=== PATIENT | female | born 1970 | race Two or more races ===

== ENCOUNTER 2019-06-24 17:11 | Emergency (ER) | payer MEDICAID ==
[~2019-06-24] VITALS: Ht 154.9 cm; Wt 79.8 kg
--- NOTE | 2019-06-24 17:12 | NUR ---
ED Nurse Note: brought by ambulance noahd ra 829 from [facility] c/o abdominal pain x3 days. patient reports nausea and denies vomitting and diarrhea. patient currently crying hysterically. patient reports etoh and onset of symptoms started after drinking. last drink this afternoon. ao4. vss. changed into gown; attached to monitor; safety measures met.
[2019-06-24] MEDS ORDERED: Morphine Sulfate 4mg/ml Inj (IV USE ONLY) IVP ONE (17:15)
[2019-06-24 17:19] VITALS: BP 124/75
--- NOTE | 2019-06-24 17:20 | Emergency Room Report ---
History of Present Illness General Chief Complaint: Abdominal Pain Source: Patient Present Illness HPI 48-year-old female history of stomach cancer history of alcohol gastritis drinks a gallon of vodka per day per patient states that she has had abdominal pain for the past 3 days after drinking vodka, no alleviating factors severity is moderate, intermittent, patient endorses nausea vomiting, diarrhea, patient presents for evaluation no fevers no chills no chest pain or shortness of breath patient is tearful during this interview She also notes that there is some blood in her diarrhea and vomit Allergies: Uncoded Allergies: BICODINE (Allergy, Unknown, 06/24/19) CODEIN (Allergy, Unknown, 06/24/19) COVID-19 Screening Contact w/high risk pt: No Recent Travel to affected area: No Experienced COVID-19 symptoms?: No Patient History Past Medical History: see triage record Reviewed Nursing Documentation: PMH: Agreed; PSxH: Agreed Nursing Documentation-PMH Past Medical History: No History, Except For Hx Cardiac Problems: No - stomach cancer History Of Psychiatric Problem: No - bipolar Review of Systems All Other Systems: negative except mentioned in HPI Physical Exam Vital Signs Date Time Temp Pulse Resp B/P (MAP) Pulse Ox O2 Delivery O2 Flow Rate FiO2 06/24/19 17:05 98.2 71 18 124/75 (91) 98 Room Air Sp02 EP Interpretation: reviewed, normal General Appearance: well appearing, no apparent distress, alert Head: normocephalic, atraumatic Eyes: bilateral eye PERRL, bilateral eye EOMI ENT: uvula midline, moist mucus membranes Neck: supple, thyroid normal, supple/symm/no masses Respiratory: lungs clear, no respiratory distress, no retraction, no accessory muscle use Cardiovascular #1: normal peripheral pulses, regular rate, rhythm, no edema, no gallop, no murmur Gastrointestinal: soft, no guarding, no rebound, tenderness - Generalized tenderness very mild Musculoskeletal: normal inspection Neurologic: alert, oriented x3 Psychiatric: anxious - Crying Skin: no rash, warm/dry Procedures Critical Care Time Critical Care Time Given the critical condition in which the patient arrived, the patient was immediately assessed by myself and the nurse, and cardiac monitoring initiated due to the potential for rapid decompensation of the patient's clinical condition. During the course of the patient's stay, I spent a considerable amount of time at the bedside performing serial re-evaluations of the patient's hemodynamic and clinical status because of the recognized potential threat to life or limb in this condition. I then had a chance to review not only all of the available current laboratory and radiographic studies obtained today, but I also reviewed old records available to me at the time. Additionally, any ancillary information available including splicer operator records were reviewed. Sequential vital signs were obtained. Blood transfused due to anemia, and abdominal pain possible gi bleed Critical Care time of 31 minutes was performed exclusive of billable procedures. Medical Decision Making Diagnostic Impression: Primary Impression: Anemia Qualified Codes: D64.9 - Anemia, unspecified Additional Impressions: Abdominal pain Qualified Codes: R10.84 - Generalized abdominal pain Alcohol abuse GI bleed Qualified Codes: K92.2 - Gastrointestinal hemorrhage, unspecified ER Course 48-year-old female presents with abdominal pain differential diagnosis includes gastritis, alcohol gastritis, GI bleed, generalized abdominal pain unspecified diverticulitis, appendicitis CT scan unremarkable however patient is anemic, will work-up patient's anemia will transfuse patient blood patient remains critical but stable will admit patient Patient will be transferred to [facility] Spoke with Dr. Kee 7:44pm Patient to be transferred to [facility] Laboratory Tests Test 06/24/19 17:20 06/24/19 17:30 White Blood Count 8.7 K/UL (4.8-10.8) Red Blood Count 4.47 M/UL (4.20-5.40) Hemoglobin 7.5 G/DL (12.0-16.0) L Hematocrit 26.6 % (37.0-47.0) L Mean Corpuscular Volume 59 FL (80-99) L Mean Corpuscular Hemoglobin 16.8 PG (27.0-31.0) L Mean Corpuscular Hemoglobin Concent 28.4 G/DL (32.0-36.0) L Red Cell Distribution Width 23.6 % (11.6-14.8) H Platelet Count 451 K/UL (150-450) H Mean Platelet Volume 7.2 FL (6.5-10.1) Neutrophils (%) (Auto) % (45.0-75.0) Lymphocytes (%) (Auto) % (20.0-45.0) Monocytes (%) (Auto) % (1.0-10.0) Eosinophils (%) (Auto) % (0.0-3.0) Basophils (%) (Auto) % (0.0-2.0) Differential Total Cells Counted 100 Neutrophils % (Manual) 45 % (45-75) Lymphocytes % (Manual) 47 % (20-45) H Monocytes % (Manual) 5 % (1-10) Eosinophils % (Manual) 2 % (0-3) Basophils % (Manual) 1 % (0-2) Band Neutrophils 0 % (0-8) Platelet Estimate Adequate Platelet Morphology Normal Polychromasia 2+ Hypochromasia 3+ Anisocytosis 3+ Microcytosis 2+ Sodium Level 141 MMOL/L (136-145) Potassium Level 3.8 MMOL/L (3.5-5.1) Chloride Level 106 MMOL/L (98-107) Carbon Dioxide Level 24 MMOL/L (21-32) Anion Gap 11 mmol/L (5-15) Blood Urea Nitrogen 11 mg/dL (7-18) Creatinine 0.6 MG/DL (0.55-1.30) Estimated Glomerular Filtration Rate > 60 mL/min (>60) Glucose Level 108 MG/DL (74-106) H Calcium Level 8.8 MG/DL (8.5-10.1) Total Bilirubin 0.4 MG/DL (0.2-1.0) Aspartate Amino Transferase (AST) 49 U/L (15-37) H Alanine Aminotransferase (ALT) 38 U/L (12-78) Alkaline Phosphatase 85 U/L (46-116) Total Protein 7.8 G/DL (6.4-8.2) Albumin 4.2 G/DL (3.4-5.0) Globulin 3.6 g/dL Albumin/Globulin Ratio 1.2 (1.0-2.7) Lipase 131 U/L (73-393) Human Chorionic Gonadotropin, Quant 1 mIU/mL (1-6) Urine Color Pale yellow Urine Appearance Slightly cloudy Urine pH 5 (4.5-8.0) Urine Specific [place] 1.010 (1.005-1.035) Urine Protein 2+ (NEGATIVE) H Urine Glucose (UA) Negative (NEGATIVE) Urine Ketones Negative (NEGATIVE) Urine Blood 5+ (NEGATIVE) H Urine Nitrite Negative (NEGATIVE) Urine Bilirubin Negative (NEGATIVE) Urine Urobilinogen Normal MG/DL (0.0-1.0) Urine Leukocyte Esterase Negative (NEGATIVE) Urine RBC 0-2 /HPF (0 - 2) Urine WBC 0-2 /HPF (0 - 2) Urine Squamous Epithelial Cells Few /LPF (NONE/OCC) Urine Bacteria Occasional /HPF (NONE) CT/MRI/US Diagnostic Results CT/MRI/US Diagnostic Results : Impression Preliminary Findings Only See Final Report For Complete Findings CT ABDOMEN & PELVIS With Contrast: No appendicitis, SBO, or diverticulitis. Moderate colonic stool. No hydronephrosis or ureteral calculus. Cholecystectomy. No radiopaque choledocholithiasis. Unremarkable pancreas. Radiologist: Slick Crook M.D. Study ready at 18:57 and initial results transmitted at 19:07 Last Vital Signs Date Time Temp Pulse Resp B/P (MAP) Pulse Ox O2 Delivery O2 Flow Rate FiO2 06/24/19 17:05 98.2 71 18 124/75 (91) 98 Room Air Disposition: SHORT-TERM HOSP Condition: Stable James Gann MD Jun 24, 2019 17:20
[2019-06-24] MEDS ORDERED: Omnipaque-300 100ml vial INJ PRN (17:30)
--- NOTE | 2019-06-24 17:30 | NUR ---
ED Nurse Note: iv access established. ja type & screen 15 min apart. blood and urine collected; sent down to lab.
[2019-06-24 17:41] LABS: HEMATOCRIT 26.6 % (37.0-47.0); HEMOGLOBIN 7.5 G/DL (12.0-16.0); MEAN CORPUSCULAR VOLUME 59 FL (80-99); PLATELET COUNT 451 K/UL (150-450); RED BLOOD COUNT 4.47 M/UL (4.20-5.40); RED CELL DISTRIBUTION WIDTH 23.6 % (11.6-14.8); WHITE BLOOD COUNT 8.7 K/UL (4.8-10.8)
[2019-06-24 17:51] LABS: APPEARANCE,URINE SLIGHTLY CLOUDY; BILIRUBIN, URINE NEGATIVE (NEGATIVE); COLOR,URINE PALE YELLOW; GLUCOSE, URINE (UA) NEGATIVE (NEGATIVE); KETONES,URINE NEGATIVE (NEGATIVE); LEUKOCYTE ESTERASE ,URINE NEGATIVE (NEGATIVE); NITRITE,URINE NEGATIVE (NEGATIVE); PH,URINE 5 (4.5-8.0); PROTEIN,URINE 2+ (NEGATIVE); UROBILINOGEN,URINE NORMAL MG/DL (0.0-1.0)
[2019-06-24 18:12] LABS: ANION GAP 11 mmol/L (5-15); BLOOD UREA NITROGEN 11 mg/dL (7-18); CALCIUM 8.8 MG/DL (8.5-10.1); CARBON DIOXIDE 24 MMOL/L (21-32); CHLORIDE 106 MMOL/L (98-107); CREATININE 0.6 MG/DL (0.55-1.30); POTASSIUM 3.8 MMOL/L (3.5-5.1); SODIUM 141 MMOL/L (136-145)
[2019-06-24 18:16] LABS: ALANINE AMINOTRANSFERASE 38 U/L (12-78); ALBUMIN 4.2 G/DL (3.4-5.0); ALBUMIN/GLOBULIN RATIO 1.2 (1.0-2.7); ALKALINE PHOSPHATASE 85 U/L (46-116); ASPARTATE AMINO TRANSFERASE 49 U/L (15-37); BILIRUBIN,TOTAL 0.4 MG/DL (0.2-1.0)
[2019-06-24 18:31] VITALS: BP 122/71
--- NOTE | 2019-06-24 18:32 | NUR ---
ED Nurse Note: patient down to ct via gurney with residential pest control technician. patient calm and comfortable. ao4. nad. vss. patient reports relief of pain from medication.
--- NOTE | 2019-06-24 19:08 | Diagnostic Imaging Report ---
Indication: Abdominal pain Technique: CT of the abdomen and pelvis utilizing automated exposure control with intravenous contrast. Venous scanning performed. Axial, sagittal and coronal reformats presented. CT dose: Total DLP 521.3 mGycm; CTDI vol 10.6 mGy Comparison: None Findings: Exam degraded by patient motion. Minimal dependent atelectatic changes noted in the lung bases. Partially imaged heart appears normal in size. No pericardial effusion. Partially imaged breast tissue appears grossly symmetric however incompletely evaluated. There is a tiny hiatal hernia. Patient is status post cholecystectomy. Minimal biliary ductal prominence likely related to postcholecystectomy state. No focal hepatic mass lesion noted however sensitivity in evaluation for such is limited on this single phase exam. Hepatic veins and portal veins appear patent. Spleen, adrenal glands and pancreas unremarkable. No peripancreatic inflammatory changes or fluid collections. Kidneys enhance symmetrically. No urinary tract stone or hydronephrosis is identified. The bladder is decompressed, precluding reliable evaluation. Fluid attenuation is noted within the uterine canal which may represent a physiologic finding in the premenopausal female. A 1.9 cm low-attenuation right adnexal lesion is noted, possibly cyst. There is no free intraperitoneal air or fluid. No evidence of bowel obstruction or definite inflammatory stranding within the mesentery. The appendix is not definitively visualized however there are no pericecal inflammatory changes to suggest acute appendicitis. Mild retained stool is noted within the colon. Abdominal aorta is normal in caliber. There is no pathologically enlarged lymphadenopathy. There is a small fat-containing supraumbilical ventral hernia. No acute osseous abnormality. IMPRESSION: Exam degraded by patient motion. Within these limitations: * Bladder is decompressed, precluding reliable evaluation. Consider further evaluation with urinalysis as clinically indicated. * Fluid attenuation noted within the uterus which may be a physiologic finding in the premenopausal female. If the patient is pre or perimenopausal recommend further evaluation with pelvic ultrasound. * 1.9 cm low-attenuation right adnexal structure, probably cyst. * Status post cholecystectomy. Minimal biliary ductal prominence likely related to post cholecystectomy state. * Small fat-containing supraumbilical ventral hernia. The CT scanner at [facility] is accredited by the [employer] and the scans are performed using protocols designed to limit radiation exposure to as low as reasonably achievable to attain images of sufficient resolution adequate for diagnostic evaluation.
--- NOTE | 2019-06-24 19:30 | NUR ---
ED Nurse Note: pretransfusion vitals stable. started transfusion. will continue to monitor.
[2019-06-24 19:45] VITALS: BP 113/62
--- NOTE | 2019-06-24 19:45 | NUR ---
ED Nurse Note: 15 minute vitals stable. no signs of transfusion reaction. will continue to monitor. patient ao4. nad. provided with pillow and warm blankets. will continue to monitor.
--- NOTE | 2019-06-24 20:58 | NUR ---
ED Nurse Note: report given to efra william of [facility]. patient to be admitted to [facility] under the care of avani loja
[2019-06-24 20:59] VITALS: BP 116/51
--- NOTE | 2019-06-24 21:00 | NUR ---
ED Nurse Note: blood transfusion completed. vitals wnl. no transfusion reaction noted. patient in stable condition. ambulated steady to bathroom. patient back into bed. repositioned for comfort. will continue to monitor.
[2019-06-24 22:15] VITALS: BP 105/56
--- NOTE | 2019-06-24 22:15 | NUR ---
ER DISCHARGE NOTE: apa 325 arrived, pt was then transported to [facility] via [facility]. Report given to Ambulance personnel. VSS as documented.
== END 2019-06-24 22:15 | disposition short-term general hospital (02) ==
LOC: EDBD 17:11 → EMR 18:47
DX: D64.9 Anemia, unspecified (principal); R10.84 Generalized abdominal pain; F10.10 Alcohol abuse, uncomplicated; K92.2 Gastrointestinal hemorrhage, unspecified; R11.2 Nausea with vomiting, unspecified; R19.7 Diarrhea, unspecified; Z88.5 Allergy status to narcotic agent; Z85.028 Personal history of other malignant neoplasm of stomach; K43.9 Ventral hernia without obstruction or gangrene; Z90.49 Acquired absence of other specified parts of digestive tract
CPT/HCPCS: 36415; 36430; 74177; 80053; 81003; 83690; 84702; 85007; 85025; 86850; 86900; 86901; 86920; 96361; 96374; 96375; J2270; J2405; J7030; P9016; Q9967; S0028; Z7502; 99291